=== PATIENT | male | born 1990 ===

== ENCOUNTER 2019-11-05 19:03 | Emergency (ER) | payer SELFPAY ==
[~2019-11-05] VITALS: Ht 175.3 cm; Wt 95.3 kg
[2019-11-05 19:17] VITALS: BP 132/82
--- NOTE | 2019-11-05 20:01 | NUR ---
PATIENT NOT IN LOBBY X1
--- NOTE | 2019-11-05 20:12 | NUR ---
PATIENT NOT IN LOBBY X2
[2019-11-05] MEDS ORDERED: HYDROcodone/APAP 5/325 TABLET PO ONE (21:00)
[2019-11-05] MEDS ORDERED: HYDROcodone/APAP 5/325 TABLET ONE (21:09)
== END 2019-11-06 04:06 | disposition home or self-care (01) ==
LOC: ED 11-06 04:04
DX: S42.022A Displaced fracture of shaft of left clavicle, initial encounter for closed fracture (principal); W01.0XXA Fall on same level from slipping, tripping and stumbling without subsequent striking against object, initial encounter; Y93.89 Activity, other specified; Y92.488 Other paved roadways as the place of occurrence of the external cause; Y99.8 Other external cause status
CPT/HCPCS: 99284